=== PATIENT | female | born 1970 | race Caucasian/White ===

== ENCOUNTER 2018-10-18 10:26 | Day surgery (SDC) | payer OTHER ==
[~2018-10-18] VITALS: Ht 160 cm; Wt 72.7 kg
[2018-10-18] VITALS (18 sets, daily range): BP systolic 86–133; BP diastolic 49–69; PULSE 54–77; RESP 15–26; Ht 160 cm; Wt 72.7 kg
[~2018-10-18 10:26] MED LIST: CLINDAMYCIN 600 MG/D5W (PMX) 50 ML IVPB ONE; SOD CHLORIDE 0.9% 1,000 ML IV SCH
[2018-10-18] MEDS ORDERED: BUPIVACAINE 0.25% (MPF) 30 ML INJ ONE (13:45)
[2018-10-18] MEDS ORDERED: MIDAZOLAM 1 MG/ML 2 ML INJ ONE (13:58)
--- NOTE | 2018-10-18 14:11 | PREAC ---
Date/Time of Note Date/Time of Note DATE: 10/18/18 TIME: 14:10 Anesthesia Eval and Record Evaluation Time Pre-Procedure Interview DATE: 10/18/18 TIME: 14:10 Age 48 Sex female NPO: 8 hrs Preoperative diagnosis Cholelithiasis Planned procedure Lap Cholecystectomy Past Medical History Past Medical History: None Surgery & Anesthesia Issues No known issue Meds Anticoagulation: No Beta Evaristo within 24 hr: No Reason Beta Evaristo not given: Pt. not on B-Evaristo No Active Prescriptions or Reported Meds Current Medications Sodium Chloride 1,000 ml @ 75 mls/hr [id number] IV ; Start 10/18/18 at 08:00; Stop 10/18/18 at 21:19 Meds reviewed: Yes Allergies Coded Allergies: Penicillins (Unverified Allergy, Intermediate, 10/18/18) Sulfa (Sulfonamide Antibiotics) (Unverified Allergy, Intermediate, 10/18/18) nitrofurantoin (Unverified Allergy, Intermediate, 10/18/18) Allergies Reviewed: Yes Labs/Studies Labs Reviewed: Reviewed by anesthesiologist test: Negative Studies: ECG Pre-procedure Exam Last vitals Vital Signs Date Temp Pulse Resp B/P (MAP) Pulse Ox O2 O2 Flow FiO2 Time Delivery Rate 10/18/18 97.9 77 18 133/65 100 Room Air 11:57 (87) Airway: Adequate mouth opening, Adequate thyromental dist Mallampati: Mallampati II Teeth: Normal Lung: Normal Heart: Normal ASA Physical Status ASA physical status: 2 Emergency: None Planned Anesthetic General/MAC: ETT Planned Pain Management Parenteral pain med Pre-operative Attestations Prior to commencing anesthesia and surgery, the patient was re-evaluated, there was verification of: *The patient's identity *The results of appropriate recent lab work and preoperative vital signs *The above evaluation not changing prior to induction *Anesthetic plan, risk benefits, alternative and complications discussed with patient/family; questions answered; patient/family understands, accepts and wishes to proceed. DELORIS DUNCAN MD Oct 18, 2018 14:11
[2018-10-18] MEDS ORDERED: NEOSTIGMINE 3 MG/3 ML SYRINGE ONE (14:41)
[2018-10-18] MEDS ORDERED: LIDOCAINE 2% (SDV) 5 ML INJ ONE (14:41)
[2018-10-18] MEDS ORDERED: GLYCOPYRROLATE 0.4 MG INJ ONE (14:41)
[2018-10-18] MEDS ORDERED: ONDANSETRON 4 MG INJ ONE (14:41)
[2018-10-18] MEDS ORDERED: PROPOFOL 20 ML ONE (14:41)
[2018-10-18] MEDS ORDERED: ROCURONIUM 50 MG INJ ONE (14:41)
[2018-10-18] MEDS ORDERED: CLINDAMYCIN 600 MG/D5W (PMX) 50 ML IVPB ONE (14:50)
--- NOTE | 2018-10-18 14:54 | OPR ---
Date/Time of Note Date/Time of Note DATE: 10/18/18 TIME: 14:48 Operative Report Procedure Date: Oct 18, 2018 Preoperative Diagnosis gallbladder polyp Postoperative Diagnosis same Operation/Procedure Performed 1. laparoscopic cholecystectomy 2. subcutaneous therapeutic injection of local anesthesia Surgeon see signature line Phlebotomist Prn none Anesthesia Type: general Estimated Blood Loss: 10 - 50 ml's Transfusion none Specimen gallbladder Grafts/Implants none Complications none Pt Condition Post Procedure: stable Indications This is a 48-year-old female who has gallbladder polyps symptoms. She was monitored for a period of time however she is experiencing some symptoms and also because of the concern of the polyp she required surgical excision of her gallbladder. Risks alternatives benefits and percent were discussed the patient. Potential complications including but not limited to bleeding infection conversion to open surgery, bile duct injury intra-abdominal organ injury need for additional operations were discussed the patient. Patient expressed understanding consents to the operation. Procedure Description Patient is taken to the OR and prepped and draped in usual sterile fashion. Surgical time was performed. IV antibiotics given. Infraumbilical transverse incision was made at the 15 blade. Dissection with cautery was carried onto the fascia. The fascia was grasped with Hornbeak's and divided with curved Morales scissors. 0 Vicryl U stitch was placed into the fascia. Hernandez trocar was introduced. Pneumoperitoneum is established. Midepigastric 12 mm optical trocar was placed under direct position. Right upper quadrant upper flank 5 mm optical trochars were placed under direct physician. Upon initial inspection there is adhesions to the gallbladder. This was taken down bluntly. The gallbladder was grasped with the fundus and retracted in a lateral cephalad direction. [place] graspers were used to dissect and isolate the cystic duct and cystic artery. The critical view was established. The cystic duct is divided with 3 clips proximally clipped distal and the division of the duct was performed with laparoscopic scissors. Cystic artery was divided 3 clips proximally clipped distal and the division was performed laparoscopic scissors. The gallbladder was taken of the gallbladder bed. Good hemostasis established. The gallbladder is retrieved using Endo Catch bag. Ports were removed under direct visualization. 0 Vicryl U stitch was tied down. Skin is closed using skin marsha. There appears to contains local anesthesia was injected at the incision site. Dry dressings were applied. Mat HUMPHREY Oct 18, 2018 14:54
[2018-10-18] MEDS ORDERED: ONDANSETRON 4 MG INJ IV PRN (15:00)
[2018-10-18] MEDS ORDERED: FENTAnyl 50 MCG/ML VIAL IV PRN (15:00)
[2018-10-18] MEDS ORDERED: METOCLOPRAMIDE 10 MG INJ IV PRN (15:00)
[2018-10-18] MEDS ORDERED: HYDROCODONE/APAP (5/325) TAB PO ONE (15:00)
[2018-10-18] MEDS ORDERED: HYDROmorphONE 1 MG/5 ML IV SYRINGE IV PRN (15:00)
[2018-10-18] MEDS ORDERED: MEPERIDINE 25 MG INJ IV PRN (15:00)
[2018-10-18] MEDS ORDERED: DIPHENHYDRAMINE 50 MG INJ IV PRN (15:00)
--- NOTE | 2018-10-18 15:01 | PAC ---
Date/Time of Note Date/Time of Note DATE: 10/18/18 TIME: 15:00 Post-Anesthesia Notes Post-Anesthesia Note Last documented vital signs Vital Signs Date Temp Pulse Resp B/P (MAP) Pulse Ox O2 O2 Flow FiO2 Time Delivery Rate 10/18/18 97.9 77 18 133/65 100 Room Air 11:57 (87) Activity: WNL Respiratory function: WNL Cardiovascular function: WNL Mental status: Baseline Pain reasonably controlled: Yes Hydration appropriate: Yes Nausea/Vomiting absent: Yes Comments BP:105/58, P:68, spo2:100%, T:98,8 DELORIS DUNCAN MD Oct 18, 2018 15:01
[2018-10-18] MEDS: HYDROmorphONE 1 MG/5 ML IV SYRINGE IV PRN ×2 (15:19→15:54)
--- NOTE | 2018-10-18 16:40 | NUR ---
vss pain 8/10 pain medication given gave report to OPAL [place] told her about [place] prescription in chart mother, sent upstairs pain 3/10 adhesive dressing on umbilicus; bandaid x 3; c/d/i
--- NOTE | 2018-10-18 17:07 | NUR ---
RE:DISCHARGE PATIENT DISCHARGED HOME. ALL DISCHARGE INSTRUCTIONS EXPLAINED AND PROVIDED TO PATIENT AND FAMILY. IV REMOVED SURGICAL SITE CLEAN AND DRY WITHOUT ANY BLEEDING NOTED ON THE SITE. SURGICAL SITE CLEAN AND DRY WITHOUT ANY COMPLICATIONS. PATIENT VERBALIZED READINESS FOR DISCHARGE AND UNDERSTANDING OF INSTRUCTIONS PROVIDED. STABLE TO LEAVE THE HOSPITAL.
== END 2018-10-18 17:04 | disposition home or self-care (01) ==
LOC: SDS 10:26
PROVIDERS: ATTEND Surgery
DX: K82.4 Cholesterolosis of gallbladder (principal)
CPT/HCPCS: 47562; J1170; J2175; J2250; J2405; J2710; J2765; J3010; Z7512; Z7610; 88304